=== PATIENT | female | born 1980 | race Caucasian/White ===

== ENCOUNTER 2017-03-27 21:20 | Outpatient (CLI) | END 2017-03-27 21:21 | disposition short-term general hospital (02) | LOC: AMBL 21:20 | PROVIDERS: ATTEND Family Medicine | DX: R06.4 Hyperventilation (principal); M54.5 Low back pain; F41.9 Anxiety disorder, unspecified; Z95.0 Presence of cardiac pacemaker ==

== ENCOUNTER 2017-06-08 11:07 | Outpatient (CLI) | END 2017-06-08 11:08 | disposition home or self-care (01) | LOC: AMBL 11:07 | PROVIDERS: ATTEND Emergency Medicine | DX: R25.1 Tremor, unspecified (principal); R00.0 Tachycardia, unspecified; Z95.810 Presence of automatic (implantable) cardiac defibrillator ==